=== PATIENT | female | born 1965 | race Caucasian/White ===

== ENCOUNTER 2017-11-05 13:18 | Observation (INO) | payer OTHER ==
[~2017-11-05] VITALS: Ht 165.1 cm; Wt 48.9 kg
[~2017-11-05 13:18] MED LIST: BENTYL10 MG PO; CIPRO250 MG PO; FLAGYL250 MG PO; PERCOCET 5/31 TABLET PO; TOPAMAX50 MG PO; VICODIN 5-3001 EACH PO; ZOFRAN4 MG PO; ZOLOFT50 MG PO
[2017-11-05 14:06] LABS: BASOPHIL (%) 0.5 % (0-1); EOSINOPHIL (%) 0.5 % (0-5); HEMATOCRIT 41.8 % (36.0-46.0); HEMOGLOBIN 14.5 G/DL (11.9-15.5); IMMATURE GRANULOCYTE (%) 0.2 % (0.0-0.7); LYMPHOCYTE (%) 24.5 % (15-42); LYMPHOCYTE COUNT 1.4 K/uL (1.0-2.8); MCH 30.7 PG (29.0-34.0); MCHC 34.7 G/DL (30.0-36.0); MCV 88.6 FL (83-99); MONOCYTE (%) 8.5 % (3-12); MONOCYTE COUNT 0.5 K/uL (0-0.8); NEUTROPHIL (%) 65.8 % (45-76); NEUTROPHIL COUNT 3.9 K/uL (1.8-6.4); PLATELET COUNT 153 K/uL (156-360); RBC DIS.WIDTH-CV 12.3 % (11.8-14.6); RBC DIS.WIDTH-SD 39.8 % (39-53); RED BLOOD COUNT 4.72 M/uL (3.80-5.20); WHITE BLOOD COUNT 5.9 K/uL (4.1-10.2)
[2017-11-05 14:20] LABS: ALBUMIN 4.4 g/dL (3.2-4.8)
[2017-11-05 14:21] LABS: CHLORIDE 109 mEq/L (99-109); POTASSIUM 3.8 mEq/L (3.7-5.4); SODIUM 142 mEq/L (136-147)
[2017-11-05 14:23] LABS: GLUCOSE 96 mg/dL (70-99); TOTAL PROTEIN 7.6 g/dL (6.4-8.3)
[2017-11-05 14:25] LABS: TOTAL BILIRUBIN 0.6 mg/dL (0.0-1.0)
[2017-11-05 14:26] LABS: ALKALINE PHOSPHATASE 77 IU/L (3-129)
[2017-11-05 14:27] LABS: CREATININE 0.9 mg/dL (0.6-1.3); GFR ESTIMATE (CALCULATED) > 59 mL/min/
[2017-11-05 14:28] LABS: AST (GOT) 27 IU/L (2-34); UREA NITROGEN (BUN) 24 mg/dL (9-23)
[2017-11-05 14:29] LABS: TROP-I INTERPRETATION NEGATIVE; TROPONIN-I < 0.01 ng/mL (0.0-0.30)
[2017-11-05 14:30] LABS: ALT (GPT) 28 IU/L (3-49)
[2017-11-05] MEDS ORDERED: LYRICA75 MG PO ×2 (16:24)
[2017-11-05] MEDS ORDERED: TOPAMAX25 MG PO (16:25)
[2017-11-05 22:55] VITALS: BP 107/56
[2017-11-06 07:00] VITALS: BP 101/68
[2017-11-06 07:26] LABS: HEMATOCRIT 34.7 % (36.0-46.0); MCH 30.2 PG (29.0-34.0); MCHC 33.4 G/DL (30.0-36.0); MCV 90.4 FL (83-99); PLATELET COUNT 164 K/uL (156-360); RBC DIS.WIDTH-CV 12.3 % (11.8-14.6); RBC DIS.WIDTH-SD 41.1 % (39-53); RED BLOOD COUNT 3.84 M/uL (3.80-5.20); WHITE BLOOD COUNT 13.3 K/uL (4.1-10.2)
[2017-11-06 07:30] LABS: HEMOGLOBIN 11.6 G/DL (11.9-15.5)
[2017-11-06 12:39] VITALS: BP 107/63
[2017-11-06 18:01] VITALS: BP 144/68
[2017-11-06 19:00] VITALS: BP 136/91
[2017-11-07 00:59] VITALS: BP 127/90
[2017-11-07 08:08] VITALS: BP 119/75
[2017-11-07 11:19] VITALS: BP 119/62
[2017-11-07] MEDS ORDERED: TYLENOL REGULA325 MG PO (14:43)
[2017-11-07] MEDS ORDERED: PREDNISONE10 MG PO (14:43)
[2017-11-07] MEDS ORDERED: DUONEB 2.5-0.5 M3 ML AEROSOL (14:43)
[2017-11-07] MEDS ORDERED: SYMBICORT60 INHALAT IH (14:43)
[2017-11-07] MEDS ORDERED: CEFTIN250 MG PO (14:43)
[2017-11-07 15:12] VITALS: BP 121/71
== END 2017-11-07 18:06 | disposition home or self-care (01) ==
LOC: EME 13:18 → 5WEST 20:43 → EDOF 20:43 → ENRESERV 20:48 → 5WEST 22:21
PROVIDERS: Emergency Medicine; Internal Medicine
DX: J44.1 Chronic obstructive pulmonary disease with (acute) exacerbation (principal); R09.02 Hypoxemia; J90 Pleural effusion, not elsewhere classified; M19.90 Unspecified osteoarthritis, unspecified site; D66 Hereditary factor VIII deficiency; G40.909 Epilepsy, unspecified, not intractable, without status epilepticus; K50.90 Crohn's disease, unspecified, without complications; F32.9 Major depressive disorder, single episode, unspecified; F41.9 Anxiety disorder, unspecified; F17.210 Nicotine dependence, cigarettes, uncomplicated; Z82.49 Family history of ischemic heart disease and other diseases of the circulatory system; Z82.5 Family history of asthma and other chronic lower respiratory diseases; Z88.0 Allergy status to penicillin
CPT/HCPCS: 71045; 71046; 80053; 83880; 84484; 85025; 85027; 87502; 93005; 94640; 94640 76; 94760; 99202; 99281; 99282; G0378; J1650; J2930; J3010; J7030; J7040

== ENCOUNTER 2018-02-24 08:36 | Day surgery (SDC) | payer OTHER ==
[~2018-02-24] VITALS: Ht 165.1 cm; Wt 59.4 kg
[~2018-02-24 08:36] MED LIST changes: +CEFTIN250 MG PO; +DUONEB 2.5-0.5 M3 ML AEROSOL; +LYRICA75 MG PO; +MIRTAZAPINE7.5 MG PO; +PANTOPRAZOLE SO40 MG PO; +PREDNISONE10 MG PO; +SYMBICORT60 INHALAT IH; +TOPAMAX25 MG PO; +TYLENOL REGULA325 MG PO
[2018-02-24 09:24] VITALS: BP 91/56
[2018-02-24 14:06] VITALS: BP 109/58
[2018-02-24 14:41] VITALS: BP 101/55
== END 2018-02-24 14:45 | disposition home or self-care (01) ==
LOC: SDC 08:36
PROC: 0QBN0ZZ Excision of Right Metatarsal, Open Approach (ICD-10-PCS; principal; 2018-02-24)
PROC: 0QSN0ZZ Reposition Right Metatarsal, Open Approach (ICD-10-PCS; principal; 2018-02-24)
DX: M20.21 Hallux rigidus, right foot (principal); M21.621 Bunionette of right foot; L84 Corns and callosities; M77.41 Metatarsalgia, right foot; J44.9 Chronic obstructive pulmonary disease, unspecified; K21.9 Gastro-esophageal reflux disease without esophagitis; Z88.0 Allergy status to penicillin
CPT/HCPCS: 73630; J0131; J1100; J2250; J2405; J3010; Q0175; S0020

== ENCOUNTER 2018-06-01 16:46 | Inpatient (IN) | payer OTHER ==
[~2018-06-01] VITALS: Ht 157.5 cm; Wt 61.7 kg
[2018-06-01 17:32] LABS: HEMATOCRIT 37.9 % (36.0-46.0); HEMOGLOBIN 13.1 G/DL (11.9-15.5); MCH 30.3 PG (29.0-34.0); MCHC 34.6 G/DL (30.0-36.0); MCV 87.5 FL (83-99); PLATELET COUNT 179 K/uL (156-360); RBC DIS.WIDTH-CV 12.6 % (11.8-14.6); RBC DIS.WIDTH-SD 40.3 % (39-53); RED BLOOD COUNT 4.33 M/uL (3.80-5.20); WHITE BLOOD COUNT 12.1 K/uL (4.1-10.2)
[2018-06-01 17:45] LABS: CHLORIDE 109 mEq/L (99-109); POTASSIUM 3.5 mEq/L (3.7-5.4); SODIUM 139 mEq/L (136-147)
[2018-06-01 17:47] LABS: GLUCOSE 152 mg/dL (70-99)
[2018-06-01 17:51] LABS: CREATININE 0.9 mg/dL (0.6-1.3); GFR ESTIMATE (CALCULATED) > 59 mL/min/
[2018-06-01 17:52] LABS: UREA NITROGEN (BUN) 11 mg/dL (9-23)
[2018-06-01 17:57] LABS: TROP-I INTERPRETATION NEGATIVE; TROPONIN-I < 0.01 ng/mL (0.0-0.30)
[2018-06-01] MEDS ORDERED: TOPIRAMATE50 MG PO (18:47)
[2018-06-01] MEDS ORDERED: MIRTAZAPINE15 MG PO (18:48)
[2018-06-01] MEDS ORDERED: SERTRALINE HCL50 MG PO (18:48)
[2018-06-01] MEDS ORDERED: DUONEB 2.5-0.5 M3 ML AEROSOL (18:55)
[2018-06-01 19:10] LABS: COMMENTS - BLOOD GASES A+C+; DEVICE NIV VENT; FI02 35 %; MODE PRESSURE SUPPORT; PCO2 19 mm Hg (35-45); PEEP 5 CM/H20; PO2 99 mm Hg (80-100); PRES. SUPPORT 10 CM/H2O; SITE RR; TOTAL RESP RATE 22 resp/min; pH 7.53 (7.35-7.45)
[2018-06-01 19:11] LABS: BASE EXCESS -4.5 mEq/L (-3 to +3); BICARBONATE 15.9 mEq/L (22-26); CARBOXY HGB 3.6 % (0-5); METHEMOGLOBIN 1.3 % (0-1.5); O2 SATURATION (CALCULATED) 98.9 % (95-99)
[2018-06-01 23:00] VITALS: BP 103/62
[2018-06-02 02:37] LABS: ALBUMIN 4.4 g/dL (3.2-4.8)
[2018-06-02 02:40] LABS: TOTAL PROTEIN 6.7 g/dL (6.4-8.3)
[2018-06-02 02:42] LABS: TOTAL BILIRUBIN 0.2 mg/dL (0.0-1.0)
[2018-06-02 02:43] LABS: ALKALINE PHOSPHATASE 102 IU/L (3-129)
[2018-06-02 02:45] LABS: AST (GOT) 10 IU/L (2-34); DIRECT BILIRUBIN 0.1 mg/dL (0.0-0.3)
[2018-06-02 02:46] LABS: ALT (GPT) 10 IU/L (3-49)
[2018-06-02 03:15] VITALS: BP 103/60
[2018-06-02 06:05] LABS: CHLORIDE 112 MEQ/L (99-109); CREATININE 0.7 MG/DL (0.6-1.3); GFR ESTIMATE (CALCULATED) > 59 mL/min/; GLUCOSE 166 mg/dL (70-99); POTASSIUM 3.5 MEQ/L (3.7-5.4); SODIUM 140 MEQ/L (136-147); UREA NITROGEN (BUN) 11 mg/dL (9-23)
[2018-06-02 07:49] LABS: MCH 29.5 PG (29.0-34.0); MCHC 33.3 G/DL (30.0-36.0); MCV 88.5 FL (83-99); PLATELET COUNT 184 K/uL (156-360); RBC DIS.WIDTH-CV 12.6 % (11.8-14.6); RED BLOOD COUNT 3.73 M/uL (3.80-5.20); WHITE BLOOD COUNT 10.9 K/uL (4.1-10.2)
[2018-06-02 09:38] VITALS: BP 112/60
[2018-06-02 12:00] VITALS: BP 83/51
[2018-06-02 16:00] VITALS: BP 97/57
[2018-06-02 19:08] VITALS: BP 96/65
[2018-06-02 23:51] VITALS: BP 97/71
[2018-06-03 05:40] VITALS: BP 107/67
[2018-06-03 07:22] VITALS: BP 110/59
[2018-06-03 08:59] LABS: HEMATOCRIT 33.2 % (36.0-46.0); HEMOGLOBIN 11.2 G/DL (11.9-15.5); MCH 30.3 PG (29.0-34.0); MCHC 33.7 G/DL (30.0-36.0); MCV 89.7 FL (83-99); PLATELET COUNT 180 K/uL (156-360); RBC DIS.WIDTH-CV 13.2 % (11.8-14.6); RBC DIS.WIDTH-SD 43.6 % (39-53); WHITE BLOOD COUNT 20.8 K/uL (4.1-10.2)
[2018-06-03 09:32] LABS: CHLORIDE 115 MEQ/L (99-109); CREATININE 0.8 MG/DL (0.6-1.3); GFR ESTIMATE (CALCULATED) > 59 mL/min/; GLUCOSE 153 mg/dL (70-99); POTASSIUM 3.7 MEQ/L (3.7-5.4); SODIUM 144 MEQ/L (136-147); UREA NITROGEN (BUN) 16 mg/dL (9-23)
[2018-06-03 11:09] VITALS: BP 96/50
[2018-06-03 16:52] VITALS: BP 102/64
[2018-06-03 20:00] VITALS: BP 119/70
[2018-06-03 23:55] VITALS: BP 108/74
[2018-06-04 04:00] VITALS: BP 117/63
[2018-06-04 08:18] LABS: HEMATOCRIT 33.9 % (36.0-46.0); HEMOGLOBIN 11.2 G/DL (11.9-15.5); MCH 30.1 PG (29.0-34.0); MCV 91.1 FL (83-99); PLATELET COUNT 177 K/uL (156-360); RBC DIS.WIDTH-CV 13.2 % (11.8-14.6); RBC DIS.WIDTH-SD 44.9 % (39-53); RED BLOOD COUNT 3.72 M/uL (3.80-5.20); WHITE BLOOD COUNT 18.1 K/uL (4.1-10.2)
[2018-06-04 08:30] VITALS: BP 114/85
[2018-06-04 12:37] VITALS: BP 123/72
[2018-06-04 14:33] VITALS: BP 119/61
[2018-06-04 19:18] VITALS: BP 107/61
[2018-06-04 23:13] VITALS: BP 116/79
[2018-06-05 03:40] VITALS: BP 101/61
[2018-06-05 07:50] VITALS: BP 117/71
[2018-06-05] MEDS ORDERED: PREDNISONE20 MG PO (11:01)
[2018-06-05] MEDS ORDERED: CEFTIN500 MG PO (11:01)
[2018-06-05] MEDS ORDERED: SPIRIVA RESPIMAT4 GM IH (11:01)
[2018-06-05] MEDS ORDERED: DOXYCYCLINE HY100 MG PO (11:01)
[2018-06-05 11:08] LABS: HEMATOCRIT 36.1 % (36.0-46.0); HEMOGLOBIN 11.8 G/DL (11.9-15.5); MCH 29.5 PG (29.0-34.0); MCHC 32.7 G/DL (30.0-36.0); MCV 90.3 FL (83-99); PLATELET COUNT 195 K/uL (156-360); RBC DIS.WIDTH-SD 43.4 % (39-53)
== END 2018-06-05 15:07 | disposition home or self-care (01) | DRG 189 ==
LOC: EME 16:46 → EDOF 22:08 → ENRESERV 22:08 → 4EAST 22:08 → ENPENDDIS 06-05 → 4EAST 06-05 15:07
PROVIDERS: Emergency Medicine; Hospitalist
PROC: 5A09357 Assistance with Respiratory Ventilation, Less than 24 Consecutive Hours, Continuous Positive Airway Pressure (ICD-10-PCS; principal; 2018-06-01)
DX: J96.01 Acute respiratory failure with hypoxia (principal); J18.9 Pneumonia, unspecified organism; J44.0 Chronic obstructive pulmonary disease with (acute) lower respiratory infection; J44.1 Chronic obstructive pulmonary disease with (acute) exacerbation; G40.909 Epilepsy, unspecified, not intractable, without status epilepticus; K50.90 Crohn's disease, unspecified, without complications; D64.9 Anemia, unspecified; G43.909 Migraine, unspecified, not intractable, without status migrainosus; F32.9 Major depressive disorder, single episode, unspecified; F41.9 Anxiety disorder, unspecified; F17.210 Nicotine dependence, cigarettes, uncomplicated
CPT/HCPCS: 36600; 71046; 71275; 80048; 80076; 83605; 84484; 85027; 87040; 87070; 87205; 87449; 93005; 94002; 94640; 94760; 94799; 99281; 99284; J0696; J1644; J1940; J2920; J2930; J3475; J7030